=== PATIENT | male | born 1975 | race Caucasian/White ===

== ENCOUNTER 2025-10-29 00:30 | Day surgery (SDC) | payer OTHER, SELFPAY ==
[2025-10-07 13:47] VITALS: BMI 34.9
--- OUTSIDE RECORDS SUMMARY | 2025-10-29 00:32 | XMS_ITS | Clinical Summary ---
Author Organization [facility] Address [address] [place] [id number] Care Team Providers Care Core Setter Name Role Phone Mehdi Erazo PA-C Primary Care Provider [phone] Allergies No known active allergies Medications No known medications Family History Medical History Relation Comments No Known Problems Father No Known Problems Mother Relation Status Comments Father Mother Social History Tobacco Use Types Packs/Day Years Used Date Smoking Tobacco: Never Smokeless Tobacco: Never Tobacco Cessation:Counseling Given: Not Answered Alcohol Use Standard Drinks/Week Comments Not Currently 0 (1 standard drink = 0.6 oz pur e alcohol) Sex and Gender Information Value Date Recorded Sex Assigned at Not on file Legal Sex Male 5:01 PM CDT Gender Identity Not on file Sexual Orientation Not on file Last Filed Vital Signs Vital Sign Reading Time Taken Comments Blood Pressure 119/63 07/25/2024 12:14 PM CDT Pulse 58 07/25/2024 12:14 PM CDT Temperature 36.3 C (97.3 F) 07/25/2024 12:14 PM CDT Respiratory Rate 16 07/25/2024 12:14 PM CDT Oxygen Saturation 97% 07/25/2024 12:14 PM CDT Inhaled Oxygen Concentration - - Weight 104.3 kg (230 lb) 07/25/2024 12:14 PM CDT Height 180.3 cm (5' 11) 07/25/2024 12:14 PM CDT Body Mass Index 32.08 07/25/2024 12:14 PM CDT Plan of Treatment Health Maintenance Due Date Last Done Comments Colorectal Cancer Screening Colonoscopy (10 Years) 1977 Annual Physical 1980 Hepatitis C 1995 Hepatitis B Vaccines (1 of 3 - 19+ 3-dose series) 1996 COVID-19 Vaccine (3 - 2024-2 6 season) 2025 02/20/2021, 01/22/2021 Influenza Adult (#1) 2025 DTaP, Tdap and Td Vaccines ( 3 - Td or Tdap) 08/01/2031 08/01/2021, 11/21/2018 Hepatitis A Vaccines Aged Out No long er eligible based on patient's age to complete this topic Meningococcal B Vaccine Aged Out No l onger eligible based on patient's age to complete this topic Meningococcal Vaccine Aged Out No karlos nery eligible based on patient's age to complete this topic Pneumococcal Vaccine: Pediatrics (0 to 5 Years) and At-Risk Patients (6 to 49 Years) Aged Out No longer eligible b ased on patient's age to complete this topic RSV Immunizations Under 20 Months Aged Out No longer eligible b ased on patient's age to complete this topic Insurance Care Teams Core Setter Relationship Specialty Start Date End Date Mehdi Erazo PA-C PCP - General PHYSICIAN MORTGAGE PROCESSOR 02/21/19
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
--- OUTSIDE RECORDS SUMMARY | 2025-10-29 00:32 | XMS_ITS | Clinical Summary ---
Author Organization [facility] Address [address] [place] [address] Care Team Providers Care Picker Tender Helper Name Role Phone Unavailable Primary Care Provider Unavailabl e Social History Tobacco Use Types Packs/Day Years Used Date Smoking Tobacco: Never Assessed Sex and Gender Information Value Date Recorded Sex Assigned at Not on file Legal Sex Male 11:58 AM PHYSICAL SCIENCES INSTRUCTOR Gender Identity Not on file Sexual Orientation Not on file Plan of Treatment Health Maintenance Due Date Last Done Comments Hepatitis C Virus (HCV) Screening 1977 TdaP Immunization 1977 Hepatitis B Immunization (1 of 3 - 19+ 3-dose series) 1996 Cologuard 2022 Colonoscopy 2022 Colorectal Cancer Screening 2022 Immunochemical Fecal Occult Blood 2022 Influenza Immunization (#1) 2025 SARS-COV-2 Immunization ( season) 2025 Respiratory Syncytial Virus (RSV) Immunization (Adult) (1 - 1-dose 75+ series) 2052 Human Papillomavirus (HPV) Immunization Aged Out No longer eligible b ased on patient's age to complete this topic Meningococcal Immunization (ACWY) Aged Out No longer eligible based on patient's age to complete this topic Pneumococcal Immunization Combined Aged Out No longer eligible based on patient's age to complete this topic Rotavirus Immunization Aged Out No lo nger eligible based on patient's age to complete this topic
[2025-10-29 06:16] VITALS: BP 119/81; PULSE 67; RESP 16; TEMP 36.1; O2SAT 98; BMI 36.6
[2025-10-29] MEDS: LACTATED RINGERS 1,000 ML 150 ML IV CONT (06:33)
--- NOTE | 2025-10-29 06:37 | P.PNAN_ITS ---
Anes - Initial Pre Proc Eval Procedure: Operation Date: 10/29/25 07:30 Proposed Procedures p Screening Colonoscopy - Quincy Juárez DO Date/Time: 10/29/25 06:37 Surgeon: Quincy Juárez DO Pre Op Diagnosis: Neoplasm screening Patient Data Age: 50 Gender: M Height: 1.8 m Weight: 119.1 kg Last Vital Signs Temp 36.1 C L 10/29/25 06:16 Pulse 67 10/29/25 06:16 Resp 16 10/29/25 06:16 BP 119/81 10/29/25 06:16 Pulse Ox 98 10/29/25 06:16 O2 Del Method Room Air 10/29/25 06:16 Allergies Allergy/AdvReac Type Severity Reaction Status Date / Time No Known Allergies Allergy Verified 10/29/25 06:21 Home Medications ?Medication ?Instructions ?Recorded ?Confirmed ?Type cyclobenzaprine 10 mg tablet 10 mg PO DAILY 10/07/25 1 12/30/24 History famciclovir 500 mg tablet 500 mg PO Q12H 10/07/25 12/0 08/15 History famotidine 10 mg tablet (Acid 10 mg PO DAILY 10/07/25 10/29/25 History Controller) Patient hx anesthesia problems: none Family hx anesthesia problems: none Results Review: All pre-operative results and documents have been reviewed as part of the pre- operative evaluation. [facility] Past Medical History Medical History (Updated 10/29/25 @ 06:37 by Louis Mobley MD) Obesity Surgical History Surgical History (Updated 10/29/25 @ 06:39 by Louis Mobley MD) S/P cervical spinal fusion Social History Social History Smoking status: Never smoker Alcohol intake: never Substance use: never Substance use type: does not use Living arrangements: with family Spiritual care concerns: No Anes - Eval Final PreProcedure Day of Procedure 10/29/25 06:37 Patient weight: obese Heart: regular rate and rhythm Lungs: clear to auscultation Airway: Mallampati scale class II Neurological: alert and oriented Last oral intake: >/= 8 hours ASA classification: II Emergent: no Anesthetic plan: proceed Anesthesia type and monitoring: general GIVS and standard monitoring Results Review: All pre-operative results and documents have been reviewed as part of the pre- operative evaluation. Informed Consent: The patient's anesthetic plan and its attendant risks and benefits were discussed with the patient/family/POA. Questions were solicited and answers provided to the satisfaction of the patient/family/POA.
--- NOTE | 2025-10-29 07:27 | P.HP_ITS ---
H&P: HPI History of Present Illness Date/Time: 10/29/25 07:27 Chief Complaint: Screening for colorectal cancer Narrative: this is a 50-year-old man who presents for his 1st colonoscopy. He denies any hematochezia or melena. He denies family history of colon cancer. Review of Systems Review of Systems: All systems reviewed & are unremarkable except as noted in HPI and below Constitutional: Constitutional: Denies chills, Denies fever(s), Denies headache(s) and Denies weight loss Eyes: Eyes: Denies change in vision ENT: Denies dizziness, Denies headache(s), Denies neck mass and Denies throat swelling Cardiovascular: Cardiovascular: Denies chest pain, Denies lightheadedness and Denies dyspnea Respiratory: Respiratory: Denies cough, Denies dyspnea and Denies wheezing Gastrointestinal: Gastrointestinal: Denies abdominal pain, Denies change in bowel habits, Denies nausea and Denies vomiting Genitourinary: Genitourinary: Denies hematuria and Denies dysuria Musculoskeletal: Musculoskeletal: Reports as per HPI Integumentary/Breasts: Skin/Breast: Reports as per HPI Neurologic: Denies dizziness and Denies headache(s) Allergic/Immunologic: Allergic/Immunologic: Denies throat swelling and Denies wheezing PMFSH Past Medical History Medical History (Updated 10/29/25 @ 07:28 by Quincy Juárez DO) Obesity Surgical History Surgical History (Updated 10/29/25 @ 06:39 by Louis Mobley MD) S/P cervical spinal fusion Social History Social History Smoking status: Never smoker Alcohol intake: never Substance use: never Substance use type: does not use Living arrangements: with family Spiritual care concerns: No Meds Home Medications and Allergies Home Medications ?Medication ?Instructions ?Recorded ?Confirmed ?Type cyclobenzaprine 10 mg tablet 10 mg PO DAILY 10/07/25 1 12/30/24 History famciclovir 500 mg tablet 500 mg PO Q12H 10/07/25 1208/15 History famotidine 10 mg tablet (Acid 10 mg PO DAILY 10/07/25 10/29/25 History Controller) Allergies Allergy/AdvReac Type Severity Reaction Status Date / Time No Known Allergies Allergy Verified 10/29/25 06:21 Vital Signs Vital Signs - 24 hr 10/29/25 06:16 Temperature 97.0 F L Pulse Rate 67 Respiratory Rate 16 Blood Pressure 119/81 Pulse Oximetry 98 Oxygen Delivery Room Air Exam Const: General: no acute distress and alert Orientation/consciousness: patient oriented x3 HENMT: Head: normocephalic and atraumatic Ears: hearing grossly normal bilaterally Face/Nose/Sinus: Normal nares present Mouth: Yes Normal oral and palatal mucosa present Eyes: Periorbital: periorbital findings normal Sclera: sclerae normal EOM: EOMs intact bilaterally Neck: Neck: normal visual inspection, no lymphadenopathy and trachea midline Chest: Chest palpation & inspection: normal inspection of the chest Resp: Effort & Inspection: normal respiratory effort Auscultation: clear to auscultation bilaterally Cardio: Jugular venous distension: no JVD Rate: regular rate Rhythm: regular rhythm Heart sounds: S1 normal heart sound present and S2 normal heart sound present Peripheral pulses: Peripheral pulses 2+ throughout GI: Inspection: normal to inspection GI Palp: Yes Soft to palpation, No Tenderness to palpation present (GI), No Guarding due to palpation present (GI) and No Rebound tenderness present Percussion: Yes normal to percussion Auscultation: normal bowel sounds : General: Yes no CVA tenderness Back/Spine/Pelvis: Back: no CVA tenderness Neuro: General: patient oriented x3, no focal motor deficits and CN's II-XI intact bilaterally Cognition (Neuro): normal cognition Speech: normal speech Motor exam (neuro): 5/5 motor strength present throughout Extrem: General: capillary refill normal and no clubbing, cyanosis or edema Assessment and Plan Assessment and plan (1) Screening for colorectal cancer: Code(s): Z12.11 - Encounter for screening for malignant neoplasm of colon; Z12.12 - Encounter for screening for malignant neoplasm of rectum Status: Acute Assessment and Plan: I have recommended colonoscopy. I have discussed the procedure, risks, benefits, and alternatives. Questions were answered. Patient is agreeable to proceed.
--- NOTE | 2025-10-29 07:41 | S_PTH ---
PATIENT: Madhu Alatorre LOC: [facility] U#:[id number] AGE/SX: 50/M ROOM: RE10/29/[address]: Quincy Juárez DO : 1975 BED: DIS: 10/29/2025 SPEC #: [id number] RECD: 10/29/25 08:12 STATUS: WILLY VARNER #: [id number] [place]: 10/29/25 07:[address]: Quincy Juárez DEPT: [facility] Surgical RECD BY: Margaret Guerra MLT, ([facility] ENTERED: 10/29/25 08:12 SP TYPE: Surgical OTHR DR: Mehdi Erazo, PAArnel Tissues: A - Colon Polypectomy Procedures: Hematoxylin and Eosin Stain Gross and Microscopic Level 4
[2025-10-29 07:42] VITALS: BP 106/71; PULSE 62; RESP 20; O2SAT 97
[2025-10-29 07:52] VITALS: BP 110/70; PULSE 60; RESP 24; O2SAT 97
[2025-10-29 08:02] VITALS: BP 106/60; PULSE 60; RESP 18; O2SAT 98
== END 2025-10-29 08:06 | disposition home or self-care (01) ==
PROVIDERS: PCP Physician Assistant; Visit Provider Surgery
PROC: 0DJD8ZZ Inspection of Lower Intestinal Tract, Via Natural or Artificial Opening Endoscopic (ICD-10-PCS; CPT 45378; principal; 2025-10-29 07:30)
DX: Z12.11 Encounter for screening for malignant neoplasm of colon (principal); D12.2 Benign neoplasm of ascending colon; E66.9 Obesity, unspecified; Z68.36 Body mass index [BMI] 36.0-36.9, adult; Z98.1 Arthrodesis status
CPT/HCPCS: 45380; 88305; J2704; J7120